=== PATIENT | female | born 1975 | race Two or more races ===

== ENCOUNTER 2018-01-25 07:48 | Outpatient (CLI) | payer OTHER | END 2018-01-25 09:00 | disposition home or self-care (01) | LOC: SONOGRAMA 07:48 | DX: E04.1 Nontoxic single thyroid nodule (principal) ==

== ENCOUNTER 2024-10-24 08:31 | Outpatient (CLI) | payer OTHER | END 2024-10-24 08:55 | disposition home or self-care (01) | LOC: MAMO-SONO 08:31 | PROVIDERS: ATTEND Specialist | DX: N60.32 Fibrosclerosis of left breast (principal); N60.31 Fibrosclerosis of right breast ==

== ENCOUNTER 2024-11-08 08:26 | Outpatient (CLI) | payer OTHER | END 2024-11-08 08:46 | disposition home or self-care (01) | LOC: MRI 08:26 | PROVIDERS: ATTEND Otolaryngology | DX: H90.3 Sensorineural hearing loss, bilateral (principal); H93.13 Tinnitus, bilateral; H90.42 Sensorineural hearing loss, unilateral, left ear, with unrestricted hearing on the contralateral side; R42 Dizziness and giddiness; H81.392 Other peripheral vertigo, left ear; H81.11 Benign paroxysmal vertigo, right ear | CPT/HCPCS: 70552 ==